=== PATIENT | female | born 1985 | race Caucasian/White ===

== ENCOUNTER 2019-06-04 00:18 | Emergency (ER) | payer OTHER ==
[~2019-06-04] VITALS: Ht 154.9 cm; Wt 101.8 kg
[2019-06-04 00:20] VITALS: BP 118/72
--- NOTE | 2019-06-04 00:25 | NUR ---
PT AMBULATES TO WITH STEADY GAIT. URINE CUP PROVIDED. WILL RETURN TO LOBBY. AWAITING AVAILABLE BED.
--- NOTE | 2019-06-04 01:07 | NUR ---
PT AMBULATED TO BED 01.
--- NOTE | 2019-06-04 01:16 | NUR ---
33 Y/O FEMALE C/O LOWER ABDOMINAL PAIN X 1 HOURS. DENIES N/V/D, URINARY PAIN/BURNING. A/OX4 AND FOLLOWS COMMANDS. BREATHING UNLABORED AND SYMMETRICAL. ABDOMEN IS SOFT AND ROUND; NO MASSES NOTED. BOWEL SOUNDS HEARD ON ALL FOUR QUADRANTS. 8/10 ACUTE PAIN NOTED WITH GRIMACING UPON PALPATION. ERMD MADE AWARE OF STATUS. SIDE RAILSX1. PMH-- DENIES RX-- DENIES
--- NOTE | 2019-06-04 01:18 | NUR ---
ERMD EVALUATING PATIENT AT THIS TIME.
[2019-06-04] MEDS ORDERED: KETOROLAC 60 MG/2 ML VIAL IM ONE (01:20)
--- NOTE | 2019-06-04 01:30 | NUR ---
RECEIVED REPORT FROM TOYA LEVIN. TRANSFER OF CARE AT THIS TIME.
--- NOTE | 2019-06-04 01:32 | NUR ---
MEDICATED WITH 60 MG IM TORADOL FOR 9/10 LOWER ABD PAIN. WILL REASSESS.
--- NOTE | 2019-06-04 02:31 | NUR ---
PT REPORTS PAIN RELIEF FROM MEDICATION. PAIN 11/17. PT STATES IT'S WORSE WHILE SITTING.
--- NOTE | 2019-06-04 02:50 | NUR ---
US AT BEDSIDE.
--- NOTE | 2019-06-04 03:13 | NUR ---
PT RESTING COMFORTABLY WITH AT BEDSIDE. VSS. AWAITING US RESULTS.
[2019-06-04 04:10] VITALS: BP 100/57
--- NOTE | 2019-06-04 04:10 | NUR ---
Patient discharged with v/s stable. Written and verbal after care instructions given and explained. Patient alert, oriented and verbalized understanding of instructions. Ambulatory with steady gait. All questions addressed prior to discharge. ID band removed. Patient advised to follow up with PMD. Rx of Motrin and Tramadol given. Patient educated on indication of medication including possible reaction and side effects. Opportunity to ask questions provided and answered.
== END 2019-06-04 04:10 | disposition home or self-care (01) ==
LOC: MED 00:18
DX: N70.11 Chronic salpingitis (principal)
CPT/HCPCS: 74018; 76856; 81025; 93976; 96372; 99284; J1885; Q0092